=== PATIENT | female | born 1935 | race Caucasian/White ===

== ENCOUNTER 2017-12-09 07:01 | Observation (INO) | payer MEDICARE ==
[~2017-12-09] VITALS: Ht 157.5 cm; Wt 88.3 kg
[~2017-12-09 07:01] MED LIST: ASPI-621 PO; ATOR40TA78 PO; CALC1CAP8 PO; CARV12.52 PO; CHOL200024 PO; CITA10TA4 PO; COQ10; MEGE40TA PO; OMEGA 3; PANT20TA3 PO; VIT1TABL32 PO
[2017-12-09] MEDS ORDERED: INDOCYANINE GREEN 25 MG VIAL ONE (07:05)
[2017-12-09] MEDS ORDERED: BUPIVACAINE 0.25% ONE (07:05)
[2017-12-09] MEDS ORDERED: OxyconTIN ER 10 MG TAB.ER PO STA (07:41)
[2017-12-09] MEDS ORDERED: ACETAMINOPHEN 500 MG TABLET PO STA (07:41)
[2017-12-09] MEDS ORDERED: ONDANSETRON ODT 8 MG PO STA (07:41)
[2017-12-09] MEDS ORDERED: GABAPENTIN 300 MG CAPSULE PO STA (07:41)
[2017-12-09] MEDS ORDERED: LACTATED RINGERS 1,000 ML IV SCH ×2 (08:10→15:00)
[2017-12-09] MEDS ORDERED: TURM500C4 PO (08:13)
[2017-12-09] MEDS ORDERED: LIDOCAINE-MPF 1%, 2ML INFIL ONE (08:30)
[2017-12-09 08:54] LABS: INTERNATIONAL NORMALIZED RATIO 1.01 (0.93-1.1); PROTHROMBIN TIME 10.5 Seconds (9.6-11.5)
[2017-12-09] MEDS ORDERED: FENTANYL PF 250 MCG/5ML ONE (09:51)
[2017-12-09] MEDS ORDERED: MIDAZOLAM 1 MG/ML, 2ML ONE (09:51)
[2017-12-09] MEDS ORDERED: ROCURONIUM 10MG/ML,5ML ONE (09:52)
[2017-12-09] MEDS ORDERED: PROPOFOL 10 MG/ML, 20ML ONE (09:53)
[2017-12-09] MEDS ORDERED: LIDOCAINE-MPF 2% ,5ML ONE (09:54)
[2017-12-09] MEDS ORDERED: CEFOTETAN PMX 2GM/50ML 50 ML ONE (09:54)
[2017-12-09] MEDS ORDERED: NEOSTIGMINE 1 MG/ML, 10ML ONE (09:58)
[2017-12-09] MEDS ORDERED: GLYCOPYRROLATE 0.4 MG/2 ML, 2ML ONE (09:58)
[2017-12-09] MEDS ORDERED: HALOPERIDOL 5 MG/ML IV PRN (10:00)
[2017-12-09] MEDS ORDERED: PROMETHAZINE 25 MG/ML, 1ML IV PRN (10:00)
[2017-12-09] MEDS ORDERED: hydrALAzine 20 MG/ML, 1ML IV PRN (10:00)
[2017-12-09] MEDS ORDERED: OXYcodone 5 MG/5 ML ORAL.SOL UDC PO PRN (10:00)
[2017-12-09] MEDS ORDERED: FENTANYL PF 100 MCG/2ML IV PRN (10:00)
[2017-12-09] MEDS ORDERED: HYDROmorphone 1 MG/ML, 1ML IV PRN (10:00)
[2017-12-09] MEDS ORDERED: MEPERIDINE/PF 25MG/0.5ML IVPush PRN (10:00)
[2017-12-09] MEDS ORDERED: LABETALOL 5MG/ML, 20ML IV PRN (10:00)
[2017-12-09] MEDS ORDERED: PHENYLEPHRINE 10 MG/ML ONE (10:35)
[2017-12-09] MEDS ORDERED: EPINEPHRINE 1 MG/ML, 1ML ONE (10:49)
[2017-12-09] MEDS ORDERED: DEXAMETHASONE 4 MG/ML, 1ML ONE ×2 (10:52)
[2017-12-09] MEDS ORDERED: METOPROLOL 1 MG/ML, 5ML ONE (12:19)
[2017-12-09] MEDS ORDERED: SODIUM CHLORIDE 0.9%, 500ML IVBOLUS PRN (14:30)
[2017-12-09] MEDS ORDERED: OXYcodone/APAP 5/325MG TABLET PO PRN (14:30)
[2017-12-09] MEDS ORDERED: ONDANSETRON ODT 4 MG PO PRN (15:00)
[2017-12-09] MEDS ORDERED: ONDANSETRON 2MG/ML, 2ML IV PRN (15:00)
[2017-12-09] MEDS ORDERED: MORPHINE SULFATE 4 MG/ML, 1ML IV PRN (15:00)
[2017-12-09] MEDS ORDERED: OMEGA 3 MC SCH (15:00)
[2017-12-09] MEDS: PANTOPRAZOLE 20MG TABLET PO SCH (16:30)
[2017-12-09] MEDS ORDERED: CARVEDILOL 6.25 MG TABLET ONE (19:31)
[2017-12-09] MEDS: METOCLOPRAMIDE 10MG TABLET PO SCH (19:49)
[2017-12-09] MEDS: CARVEDILOL 12.5 MG TABLET PO SCH (19:54)
[2017-12-09 20:13] VITALS: BP 126/67
[2017-12-09] MEDS ORDERED: ATORVASTATIN 40 MG TABLET PO SCH (21:00)
[2017-12-10 00:13] VITALS: BP 97/59
[2017-12-10] MEDS: METOCLOPRAMIDE 10MG TABLET PO SCH ×2 (01:42→07:43)
[2017-12-10 04:32] VITALS: BP 98/60
[2017-12-10 05:16] VITALS: BP 89/48
[2017-12-10] MEDS: CARVEDILOL 12.5 MG TABLET PO SCH (05:16)
[2017-12-10 05:19] LABS: BASOPHILS # (AUTO) 0.03 x10^3/uL (0-0.1); BASOPHILS % (AUTO) 0 % (0-1); EOSINOPHILS % (AUTO) 0 % (1-7); LYMPHOCYTES # (AUTO) 0.92 x10^3/uL (1-3.4); LYMPHOCYTES % (AUTO) 10 % (22-44); MD NO; MEAN CORPUSCULAR HEMOGLOBIN 30.8 pg (27.0-34.8); MEAN CORPUSCULAR HGB CONC 32.7 g/dL (32.4-35.8); MEAN CORPUSCULAR VOLUME 94.1 fL (80-100); MEAN PLATELET VOLUME 9.5 fL (7.4-10.4); MONOCYTES # (AUTO) 0.89 x10^3/uL (0.2-0.8); MONOCYTES % (AUTO) 10 % (2-9); NEUTROPHILS # (AUTO) 7.33 x10^3/uL (1.8-6.8); NEUTROPHILS % (AUTO) 80 % (42-75); PLATELET COUNT 211 x10^3/uL (130-400); RED BLOOD COUNT 3.61 x10^6/uL (3.82-5.3); RED CELL DISTRIBUTION WIDTH 15.7 % (9.6-15.2)
[2017-12-10] MEDS ORDERED: SODIUM CHLORIDE 0.9%, 500ML IVBOLUS ONE (05:30)
[2017-12-10 05:34] LABS: ANION GAP 6 mmol/L (5-15); CALCIUM 8.4 mg/dL (8.5-10.1); CHLORIDE 109 mmol/L (98-107)
[2017-12-10 05:35] LABS: CREATININE 0.99 mg/dL (0.55-1.02)
[2017-12-10] MEDS ORDERED: ASPIRIN 81 MG TABLET EC PO SCH ×2 (06:00→09:00)
[2017-12-10 07:22] VITALS: BP 109/70
[2017-12-10] MEDS: PANTOPRAZOLE 20MG TABLET PO SCH (07:46)
[2017-12-10] MEDS ORDERED: CALCIUM CARBONATE 500 MG TABLET PO SCH (09:00)
[2017-12-10] MEDS ORDERED: CHOLECALCIFEROL 400 UNITS TABLET PO SCH (09:00)
[2017-12-10] MEDS ORDERED: CHOLECALCIFEROL 1,000 UNIT TABLET PO SCH (09:00)
[2017-12-10] MEDS ORDERED: MULTIVITAMINS/MINERALS TABLET PO SCH (09:00)
[2017-12-10] MEDS ORDERED: CITALOPRAM 10 MG TABLET PO SCH (09:00)
[2017-12-10] MEDS ORDERED: ATORVASTATIN 40 MG TABLET PO SCH (21:00)
== END 2017-12-10 10:46 | disposition home or self-care (01) ==
LOC: OUT 07:01 → 4NOR 14:07 → OUT 15:04 → INTOOBSV 15:05 → 4NOR 15:05
PROVIDERS: ADMIT Specialist; ATTEND Specialist
DX: D25.1 Intramural leiomyoma of uterus (principal); C54.1 Malignant neoplasm of endometrium; I10 Essential (primary) hypertension; I25.2 Old myocardial infarction; K66.0 Peritoneal adhesions (postprocedural) (postinfection); N88.8 Other specified noninflammatory disorders of cervix uteri; N83.312 Acquired atrophy of left ovary; N83.311 Acquired atrophy of right ovary; Z85.42 Personal history of malignant neoplasm of other parts of uterus; Z90.49 Acquired absence of other specified parts of digestive tract
CPT/HCPCS: 36415; 58571; 80048; 85025; 85610; 85730; 86304; 86850; 86900; 88305; 88307; 88331; 93005; G0378; J0171; J1100; J2250; J2370; J2704; J2710; J3010; J3490; J7040; J7120; Q0162; S0074